=== PATIENT | female | born 1980 | race American Indian/Alaskan Native ===

== ENCOUNTER 2017-01-14 10:20 | Emergency (ER) | payer MEDICAID ==
[2017-01-14 10:53] VITALS: BP 157/104
[2017-01-14 11:27] LABS: Basophils % (Auto) 0.6 % (0.0-1.8); Eosinophils % (Auto) 2.7 % (0.0-4.3); Hematocrit 32.8 % (30.3-42.9); Hemoglobin 10.4 gm/dl (10.1-14.3); Mean Corpuscular HGB Conc 32 % (30-34); Mean Corpuscular Hemoglobin 26 pg (28-32); Mean Corpuscular Volume 83 fl (79-97); Platelet Count 240 K/mm3 (140-440); Red Blood Count 3.93 M/mm3 (3.65-5.03); White Blood Count 3.9 K/mm3 (4.5-11.0)
[2017-01-14 11:41] LABS: Anion Gap 16 mmol/L; Blood Urea Nitrogen 6 mg/dL (7-17); Calcium 8.3 mg/dL (8.4-10.2); Carbon Dioxide 24 mmol/L (22-30); Chloride 104.9 mmol/L (98-107); Glucose 108 mg/dL (65-100); Potassium 4.2 mmol/L (3.6-5.0); Sodium 141 mmol/L (137-145)
--- NOTE | 2017-01-14 14:05 | XRay Report ---
CHEST 2 VIEWS INDICATION: Shortness of breath. COMPARISON: 06/29/2015 FINDINGS: PA and lateral chest radiographs, 3 images suggest normal cardiomediastinal silhouette and clear lungs, though frontal views somewhat limited due to motion artifact. Mid thoracic predominantly right-sided osteophytes. CONCLUSION: No significant interval change or acute chest process on this limited exam, as described. Thank you for the opportunity to participate in this patient's care.
== END 2017-01-14 21:44 | disposition left against medical advice (07) ==
LOC: ED 10:20
DX: R05 Cough (principal); R07.9 Chest pain, unspecified; R06.00 Dyspnea, unspecified; Z53.21 Procedure and treatment not carried out due to patient leaving prior to being seen by health care provider
CPT/HCPCS: 36415; 71020; 80048; 84484; 85025; 93005; 93010

== ENCOUNTER 2017-07-25 11:32 | Emergency (ER) | payer MEDICAID ==
--- NOTE | 2017-07-25 13:10 | XRay Report ---
Left knee 3 views: History: Pain. Findings: Unfused tibial tuberosity epiphysis. Normal articular surfaces. No fracture or dislocation. No obvious evidence of joint effusion. Impression: No definite bony or articular abnormality.
[2017-07-25] MEDS ORDERED: TORADOL IM ONE (15:42)
[2017-07-25] MEDS ORDERED: BOOSTRIX IM ONE (15:42)
--- NOTE | 2017-07-25 15:51 | Emergency Department Report ---
ED Lower Extremity HPI - General Chief Complaint: Extremity Injury, Lower Stated Complaint: LEFT KNEE INJURY Source: patient Mode of arrival: Wheelchair Limitations: No Limitations - History of Present Illness Initial Comments: 36 y/o F presents to the ER today stating that she was in the parking lot when thought she had placed her car in park but states that she had not and her car kept moving forward as this happened pt states that she jumped into the car, scrapped her knee on her truck, the cement, and the car next to her. Pt reports to severe pain that increases with movement. Pt states that she has not tried anything for the symptoms at this time. She reports to 8/10 in severity pain. No numbness or tingling reported. Swelling, redness, and pain were reported. No chest pain or SOB.Pt denies any trauma to the head, no LOC, dizziness, or blurried vision. PCN allergy reported. MD Complaint: knee injury (left knee) -: hour(s) (3 hours) Injury: Knee: Left (contusion to the left knee) Place: street/outdoors Severity: severe Severity scale (0 -10): 8 Improves With: nothing Worsens With: movement, palpation Context: direct blow, jumping Associated Symptoms: swelling, able to partially bear weight, other (denies snaping, popping, numbness, or tingling) - Related Data Previous Rx's Medication Instructions Recorded Last Taken Type ALBUTEROL Inhaler [ProAir HFA 2 puff IH QID PRN #1 inhalation 09/15/14 11/03/14 21:00 Rx Inhaler] Ibuprofen [Motrin 800 MG tab] 800 mg PO Q8H PRN #30 tablet 11/04/14 Unknown Rx Nitrofurantoin [place]/M-Cryst 100 mg PO Q12HR #10 capsule 11/04/14 Unknown Rx [Macrobid CAP] traMADol [Ultram] 50 mg PO Q6HR PRN #20 tablet 11/04/14 Unknown Rx ALBUTEROL NEB's [Proventil 0.083% 2.5 mg IH TID PRN #1 box 12/26/14 Unknown Rx NEBS] Nebulizer [Compact Compressor 1 each MC ONCE #1 kit 12/26/14 Unknown Rx Nebulizer] traMADol [Ultram] 50 mg PO Q6HR PRN #14 tablet 12/26/14 Unknown Rx Ibuprofen [Motrin] 800 mg PO Q8H PRN #60 tablet 01/12/15 Unknown Rx methOCARBAMOL [Robaxin] 500 mg PO BID #10 tab 01/12/15 Unknown Rx traMADol [Ultram] 50 mg PO Q6HR PRN #20 tablet 01/12/15 Unknown Rx Prednisone [predniSONE 10 mg 10 mg PO .TAPER #1 tab.ds.pk 03/28/15 Unknown Rx (6-Day Pack, 21 Tabs)] Acetaminophen/Codeine [Tylenol #3] 1 tab PO Q6H PRN #16 tab 06/29/15 Unknown Rx Albuterol Sulfate [Albuterol 0.63% 0.63 mg IH Q4H PRN #25 neb 06/29/15 Unknown Rx NEBS] Azithromycin [Zithromax Z-RANDEE] 0 mg PO DAILY #6 tab 06/29/15 Unknown Rx Promethazine Dm [Phenergan Dm 5 ml PO Q6H PRN #120 ml 06/29/15 Unknown Rx 6.25/15 mg 5 ml] predniSONE [Deltasone] 20 mg PO TID #12 tab 06/29/15 Unknown Rx Cyclobenzaprine HCl [Flexeril 5 MG 5 mg PO TID PRN #15 tab 07/25/17 Unknown Rx TAB] Allergies Allergy/AdvReac Type Severity Reaction Status Date / Time Penicillins Allergy Shortness Verified 01/14/17 10:44 of Breath ED Review of Systems ROS: Stated complaint: LEFT KNEE INJURY Other details as noted in HPI Constitutional: denies: chills, fever Eyes: denies: eye pain, eye discharge, vision change ENT: denies: ear pain, throat pain Respiratory: denies: cough, shortness of breath, wheezing Cardiovascular: denies: chest pain, palpitations Gastrointestinal: denies: abdominal pain, nausea, diarrhea Genitourinary: denies: urgency, dysuria, discharge Musculoskeletal: joint swelling, myalgia, other (left knee pain, contusion, and mild swelling noted at the site) Skin: lesions, other (contusion, mild bleeding) Neurological: denies: headache, weakness, paresthesias Psychiatric: denies: anxiety, depression ED Past Medical Hx - Past Medical History Hx Asthma: Yes Additional medical history: vaginal delivery x 2. MORBID OBESITY - Surgical History Past Surgical History?: No - Social History Smoking Status: Current Every Day Smoker Substance Use Type: None - Medications Home Medications: Home Medications Medication Instructions Recorded Confirmed Last Taken Type ALBUTEROL Inhaler [ProAir HFA 2 puff IH QID PRN #1 inhalation 09/15/14 11/04/14 11/03/14 21:00 Rx Inhaler] Ibuprofen [Motrin 800 MG tab] 800 mg PO Q8H PRN #30 tablet 11/04/14 Unknown Rx Nitrofurantoin [place]/M-Cryst 100 mg PO Q12HR #10 capsule 11/04/14 Unknown Rx [Macrobid CAP] traMADol [Ultram] 50 mg PO Q6HR PRN #20 tablet 11/04/14 Unknown Rx ALBUTEROL NEB's [Proventil 0.083% 2.5 mg IH TID PRN #1 box 12/26/14 Unknown Rx NEBS] Nebulizer [Compact Compressor 1 each MC ONCE #1 kit 12/26/14 Unknown Rx Nebulizer] traMADol [Ultram] 50 mg PO Q6HR PRN #14 tablet 12/26/14 Unknown Rx Ibuprofen [Motrin] 800 mg PO Q8H PRN #60 tablet 01/12/15 Unknown Rx methOCARBAMOL [Robaxin] 500 mg PO BID #10 tab 01/12/15 Unknown Rx traMADol [Ultram] 50 mg PO Q6HR PRN #20 tablet 01/12/15 Unknown Rx Prednisone [predniSONE 10 mg 10 mg PO .TAPER #1 tab.ds.pk 03/28/15 Unknown Rx (6-Day Pack, 21 Tabs)] Acetaminophen/Codeine [Tylenol #3] 1 tab PO Q6H PRN #16 tab 06/29/15 Unknown Rx Albuterol Sulfate [Albuterol 0.63% 0.63 mg IH Q4H PRN #25 neb 06/29/15 Unknown Rx NEBS] Azithromycin [Zithromax Z-RANDEE] 0 mg PO DAILY #6 tab 06/29/15 Unknown Rx Promethazine Dm [Phenergan Dm 5 ml PO Q6H PRN #120 ml 06/29/15 Unknown Rx 6.25/15 mg 5 ml] predniSONE [Deltasone] 20 mg PO TID #12 tab 06/29/15 Unknown Rx Cyclobenzaprine HCl [Flexeril 5 MG 5 mg PO TID PRN #15 tab 07/25/17 Unknown Rx TAB] ED Physical Exam - General Limitations: No Limitations General appearance: alert, in no apparent distress - Head Head exam: Present: atraumatic, normocephalic, normal inspection - Eye Eye exam: Present: normal appearance, EOMI - ENT ENT exam: Present: mucous membranes moist - Neck Neck exam: Present: normal inspection, full ROM - Respiratory Respiratory exam: Present: normal lung sounds bilaterally. Absent: respiratory distress - Cardiovascular Cardiovascular Exam: Present: regular rate, normal rhythm. Absent: systolic murmur, diastolic murmur, rubs, gallop - GI/Abdominal GI/Abdominal exam: Present: soft - Extremities Exam Extremities exam: Present: other (tenderness to palpation at the anterior aspect of the left knee just distal to the patella, there is a quarter-sized contusion with mild blood noted at the site, ROM is full, however, it elicits pain, the ankle joint has full ROM, pulses, and strength are full, sensation is intact, hemodynmcailly and neurovascularly intact, there is also some ttp at the posterior aspect of the knee, there was signficant pain elicited with inward pressure of the knee) - Back Exam Back exam: Present: normal inspection - Neurological Exam Neurological exam: Present: alert, oriented X3, CN II-XII intact - Psychiatric Psychiatric exam: Present: normal affect, normal mood - Skin Skin exam: Present: other (there is swelling, mild redness, and contusion noted just distal to the left knee) ED Course Vital Signs 07/25/17 07/25/17 07/25/17 11:56 16:07 16:59 Temperature 97.6 F Pulse Rate 92 H Respiratory 16 20 16 Rate Blood Pressure 127/82 153/92 O2 Sat by Pulse 100 Oximetry 07/25/17 17:03 Temperature 97.9 F Pulse Rate 76 Respiratory 98 H Rate Blood Pressure O2 Sat by Pulse Oximetry ED Lower Extremity MDM - Radiology Data Radiology results: image reviewed X ray of the Left knee: unfused tibila tuberosity epiphysis. Normal artifular surfaces. No fracture or dislocation. No obvious evidence of joint effusion. - Medical Decision Making I have spoken with Dr. Magana, orthopedist regarding this case, he states that there is no acute abnormalities and states to place patient in a knee immobilizer and provide crutches or walker; with a follow-up with him OP. Area was cleaned with normal saline and neosporin was applied to the wound. Pt was updated with her tetanus shot today. Pt was educated to clean wound and apply neosporin to the contusion at home. Pt was given a knee immobilizer and crutches in the ED. For pain, pt was given toradol 30 mg in which states that helped with her pain. Recheck of her vitals caused a mild bump in her BP, therefore, I advised OTC tylenol as needed for the pain along with the flexeril until she is able to follow-up with PCP regarding her BP. Pt was discharged in stable condition, alert and oriented, speaking in full sentences. Pt was provided with a referral to Dr. Magana OP. Critical care attestation.: If time is entered above; I have spent that time in minutes in the direct care of this critically ill patient, excluding procedure time. ED Disposition Clinical Impression: Knee contusion Qualifiers: Encounter type: initial encounter Laterality: left Qualified Code(s): S80.02XA - Contusion of left knee, initial encounter Knee pain, acute Qualifiers: Laterality: left Qualified Code(s): M25.562 - Pain in left knee Disposition: DC-01 TO HOME OR SELFCARE Is pt being admited?: No Does the pt Need Aspirin: No Condition: Stable Instructions: Ibuprofen (By mouth), Cyclobenzaprine (By mouth), Knee Pain (ED) , RICE Therapy (ED) Additional Instructions: Please take medications as needed for the pain. RICE= rest, ice, compress, and elevate the joint. Please do not take flexeril at during the day or when operating heavy machinery as it may make you drowsy. Due to the elevation in BP with the toradol, I enrcouraged pt to follow-up with her pcp within 1 week for BP monitoring and advised her to take tylenol extra strength instead for the pain. please follow-up with orthopedics within 3-5 days. Please follow-up with pcp within 3-5 days. Please return to the ER immediately with any acute worsening. Please use the knee immobilizer and walker. Prescriptions: Cyclobenzaprine HCl [Flexeril 5 MG TAB] 5 mg PO TID PRN #15 tab PRN Reason: pain Referrals: PRIMARY CARE, [Primary Care Provider] - 3-5 Days NUNU MAGANA MD [Staff Physician] - 3-[address] [facility] [Outside] - 3-5 Days [facility] [Outside] - 3-5 Days Forms: Work/School Release Form(ED)
[2017-07-25] MEDS ORDERED: TRIPLE ANTIBIOTIC TP ONE (16:03)
[2017-07-25 17:02] VITALS: BP 153/92
== END 2017-07-25 17:03 | disposition home or self-care (01) ==
LOC: ED 11:32
DX: S80.02XA Contusion of left knee, initial encounter (principal); J45.909 Unspecified asthma, uncomplicated; F17.200 Nicotine dependence, unspecified, uncomplicated; W22.8XXA Striking against or struck by other objects, initial encounter; Y93.9 Activity, unspecified; Y92.9 Unspecified place or not applicable; Y99.9 Unspecified external cause status
CPT/HCPCS: 29505; 73562; 81025; 90471; 90715; 96372; 99284; J1885; A6250